=== PATIENT | female | born 1955 | race Caucasian/White ===

== ENCOUNTER 2018-12-31 08:17 | Outpatient (RCR) | payer MEDICARE, MEDICAID, SELFPAY ==
[2018-12-31 08:42] VITALS: BP 147/79; PULSE 65; RESP 18; TEMP 36.2; BMI 25.0
--- NOTE | 2018-12-31 10:44 | PCM.WC.PN ---
(1) Peripheral vascular disease of lower extremity with ulceration Status: Acute Current Visit: Yes Code(s): I73.9 - Peripheral vascular disease, unspecified; L97.909 - Non-pressure chronic ulcer of unspecified part of unspecified lower leg with unspecified severity (2) History of DVT of lower extremity Status: Acute Current Visit: Yes Code(s): Z86.718 - Personal history of other venous thrombosis and embolism (3) Blood clotting factor deficiency disorder Status: Acute Current Visit: Yes Code(s): D68.4 - Acquired coagulation factor deficiency (4) Nonhealing nonsurgical wound with fat layer exposed Status: Acute Current Visit: Yes Code(s): T14.8XXA - Other injury of unspecified body region, initial encounter (5) Non-pressure chronic ulcer of ankle Status: Acute Current Visit: Yes Code(s): L97.309 - Non-pressure chronic ulcer of unspecified ankle with unspecified severity Type of Wound Date of Service: 12/31/18 Chief Complaint: Follow-up on left lateral venous ulcer of inner ankle History of Wound: 63-year-old white female with a clotting disorder on Coumadin. Developed in November and open area and her left inner ankle area while in [place]. Patient was not wearing her compression stockings because of the heat. Patient has been seen by her primary care doctor and started on doxycycline on and has been on a Medrol Dosepak for this problem. Patient was referred to us from her doctor. Progress of Wound: Today the ulcer is irregular in shape one by one and positive depth. Appears clean but very painful. Patient will be started on some Neurontin for her pain. Patient has been wearing her compression stockings since the incident. Some redness around the area of the ulcer - Physical Exam Vital Signs Temp Pulse Resp BP 97.1 F L 65 18 147/79 H 12/31/18 08:42 12/31/18 08:42 12/31/18 08:42 12/31/18 08:42 General: Oriented x3, Cooperative, Well developed HEENT: Atraumatic, PERRLA Oral: Moist Mucosa Neck: Supple, No JVD Lungs: Clear to auscultation, Normal air movement Cardiovascular: Regular rate, Regular Rhythm Abdomen: Bowel Sounds Present, Soft, Non Tender, No Hepato-splenomegaly Extremities: No clubbing, No edema Skin: Ulcer/ Wound - Left inner ankle ulcer peripheral vascular Wound Measurements and Assessment WC - Nurse 1 - General Ulcer Measurement Start: 12/31/18 08:27 Freq: Status: Active Protocol: Activity Type Activity Date Activity User E-Sign Co-Sign Detail Recorded Client Recorded Date Recorded By Document 12/31/18 08:42 DL [id number] 12/31/18 09:08 DL 12/31/18 08:42 Wound Center Nurse 1 [Ulcer Assessment] #1 L Lat Ankle -Current Size (cm) - Length 0.7 -Current Size (cm) - Width 0.7 -Current Size (cm) - Depth 0.2 -Total Square Cm 0.49 -Photo Taken Yes -Exudate Amt Small -Exudate Type Serosanguineous -Wound Margin Distinct, Outline Attached -Granulation Amt Large (67-100%) -Granulation Quality Pale,[place] -Necrosis Amt Small (1-33%) -Necrotic Tissue Type Adherent Slough -Structure Exposed N/A -Texture (Debbi-wound Skin Appearance) Scarring -Moisture (Debbi-wound Skin Appearance No Abnormality ) -Color (Debbi-wound Skin Appearance) Hemosiderin Staining -Temperature (Debbi-wound Skin No Abnormality Appearance) (Pt Warm) -Tenderness on Palpation (Debbi-wound Yes Skin Appearance) -Ulcer Cleansing Rinsed/ Irrigated with Saline -Foul Odor after Cleansing No -Anesthetic Used 4% Lidocaine Solution,5% Lidocaine Gel [Edema Assessment] -Right Calf (cm) 31 -Right Ankle (cm) 18.3 -Left Calf (cm) 31.4 -Left Ankle (cm) 18.3 WC - Nurse 2 - General Ulcer CM Notes Start: 12/31/18 08:27 Freq: Status: Active Protocol: Activity Type Activity Date Activity User E-Sign Co-Sign Detail Recorded Client Recorded Date Recorded By Document 12/31/18 09:37 MW [id number] 12/31/18 09:45 MW 12/31/18 09:37 Wound Center Nurse 2 [Procedure/Treatment] #1 L Lat Ankle -Time 09:37 -Correct Patient Yes -Correct Side, Site, Position Yes -Correct Procedure Yes -Procedure Performed Yes -Type of Procedure Debridement -Clinical Debridement Subcutaneous -Post Debridement Size (cm) - Length 1.0 -Post Debridement Size (cm) - Width 1.0 -Post Debridement Size (cm) - Depth 0.3 -Total Square Cm 1.00 -Wound/Ulcer Outcome Not Healed -Ulcer Cleansing Rinsed/ Irrigated with Saline -Foul Odor after Cleansing No -Bioengineered Tissue No -Bleeding Controlled with Pressure -Offloading No -Treatment Response Procedure Tolerated Well [See Physician Procedure note for Specifics] Pain Scale: 0-10 Numeric [Pain] -Is Patient Pain Free? Yes Musculoskeletal: No Tenderness to Palpation of Joints or Extremities Lymphatic: No Cervical, Supraclavicular, or Inguinal Adenopathy Neurological: Cranial nerves II-XII grossly intact, Neuro grossly intact Psych/Mental Status: Normal Affect, Appropriate Debridement Note Post-Debridement Measurements/Treatment WC - Nurse 2 - General Ulcer CM Notes Start: 12/31/18 08:27 Freq: Status: Active Protocol: Activity Type Activity Date Activity User E-Sign Co-Sign Detail Recorded Client Recorded Date Recorded By Document 12/31/18 09:37 MW [id number] 12/31/18 09:45 MW 12/31/18 09:37 Wound Center Nurse 2 #1 L Lat Ankle -Time 09:37 -Correct Patient Yes -Correct Side, Site, Position Yes -Correct Procedure Yes -Procedure Performed Yes -Type of Procedure Debridement -Clinical Debridement Subcutaneous -Post Debridement Size (cm) - Length 1.0 -Post Debridement Size (cm) - Width 1.0 -Post Debridement Size (cm) - Depth 0.3 -Total Square Cm 1.00 -Wound/Ulcer Outcome Not Healed -Ulcer Cleansing Rinsed/ Irrigated with Saline -Foul Odor after Cleansing No -Bioengineered Tissue No -Bleeding Controlled with Pressure -Offloading No -Treatment Response Procedure Tolerated Well Pain Scale: 0-10 Numeric Is Patient Pain Free? Yes Wound debrided: Peripheral vascular with ulcer left inner ankle Type of Debridement: Excisional debridement Anesthesia Used: 5% Lidocaine Gel Depth: Down to and including healthy tissue, in the subcutaneous layer Percentage of wound debrided: 100 Instrument Used: 3mm curette Tissue Removed: Fibrin Severity: Limited To Skin Breakdown Amount of bleeding with debridement: Mild Bleeding Controlled with: Compression and gauze Patient tolerated procedure well Assessment/Plan Active Problems Peripheral vascular disease of lower extremity with ulceration (Acute) History of DVT of lower extremity (Acute) Blood clotting factor deficiency disorder (Acute) Nonhealing nonsurgical wound with fat layer exposed (Acute) Non-pressure chronic ulcer of ankle (Acute) Assessment: Nonhealing nonpressure nonsurgical ulcer. Peripheral vascular disease. Clotting disorder. Pain left lower leg Plan: Wash leg with antibacterial soap or Hibiclens. Apply Promogran to the wound base cover with Adaptic and dressing double layer Tubigrip. Follow up in 1 week. Will apply for skin substitutes.
== END 2019-01-05 23:59 ==
LOC: WC 08:17
PROVIDERS: Family Provider Physician Assistant Medical; PCP Physician Assistant Medical; Visit Provider Podiatrist
DX: I73.9 Peripheral vascular disease, unspecified (principal); Z86.718 Personal history of other venous thrombosis and embolism; L97.311 Non-pressure chronic ulcer of right ankle limited to breakdown of skin
CPT/HCPCS: 11042; 99203; G0463

== ENCOUNTER 2019-02-04 09:45 | Outpatient (RCR) | payer MEDICARE, MEDICAID, SELFPAY ==
[2019-01-06 01:16] VITALS: BP 147/79; PULSE 65; RESP 18; TEMP 36.2
[2019-01-07 10:01] VITALS: BP 130/66; PULSE 68; RESP 16; TEMP 35.9; BMI 25.0
--- NOTE | 2019-01-07 10:51 | PCM.WC.PN ---
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 Current Visit: Yes Code(s): D68.4 - Acquired coagulation factor deficiency (2) History of DVT of lower extremity Status: Chronic Current Visit: Yes Code(s): Z86.718 - Personal history of other venous thrombosis and embolism (3) Non-pressure chronic ulcer of ankle Status: Acute Current Visit: Yes Qualifiers: Laterality: left Code(s): L97.309 - Non-pressure chronic ulcer of unspecified ankle with unspecified severity (4) Nonhealing nonsurgical wound with fat layer exposed Status: Acute Current Visit: Yes Code(s): T14.8XXA - Other injury of unspecified body region, initial encounter (5) Peripheral vascular disease of lower extremity with ulceration Status: Acute Current Visit: Yes Code(s): I73.9 - Peripheral vascular disease, unspecified; L97.909 - Non-pressure chronic ulcer of unspecified part of unspecified lower leg with unspecified severity Type of Wound Date of Service: 01/07/19 Chief Complaint: Follow-up on left lateral venous ulcer of inner ankle History of Wound: 63-year-old white female with a clotting disorder on Coumadin. Developed in November and open area and her left inner ankle area while in [place]. Patient was not wearing her compression stockings because of the heat. Patient has been seen by her primary care doctor and started on doxycycline on and has been on a Medrol Dosepak for this problem. Patient was referred to us from her doctor. Progress of Wound: Today the ulcer is irregular in shape one by one and positive depth. Appears smaller clean but very painful. Patient will be started on some Neurontin for her pain. Which she says is been helping her she is been averaging 10 pills a day 2 or 3 at a time roughly around 4 times a day. Patient has been wearing her compression stockings since the incident. Patient was approved for epi fix will apply #1 today - Physical Exam Vital Signs Temp Pulse Resp BP 96.6 F L 68 16 130/66 H 01/07/19 10:01 01/07/19 10:01 01/07/19 10:01 01/07/19 10:01 General: Oriented x3, Cooperative, Well developed HEENT: Atraumatic, PERRLA Oral: Moist Mucosa Neck: Supple, No JVD Lungs: Clear to auscultation, Normal air movement Cardiovascular: Regular rate, Regular Rhythm Abdomen: Bowel Sounds Present, Soft, Non Tender, No Hepato-splenomegaly Extremities: No clubbing, No edema, - - Left lateral peripheral vascular disease with ulcer Wound Measurements and Assessment WC - Nurse 1 - General Ulcer Measurement Start: 01/07/19 10:00 Freq: Status: Active Protocol: Activity Type Activity Date Activity User E-Sign Co-Sign Detail Recorded Client Recorded Date Recorded By Document 01/07/19 10:01 BS [id number] 01/07/19 10:10 BS 01/07/19 10:01 Wound Center Nurse 1 [Ulcer Assessment] #1 L Lat Ankle -Combined with other wound No -Current Size (cm) - Length 0.5 -Current Size (cm) - Width 1.3 -Current Size (cm) - Depth 0.3 -Total Square Cm 0.65 -Undermining/Tunneling No -Granulation Amt Small (1-33%) -Granulation Quality [place],Red -Moisture (Debbi-wound Skin Appearance Assessed,Dry/ ) Scaly -Color (Debbi-wound Skin Appearance) Assessed -Temperature (Debbi-wound Skin No Abnormality Appearance) (Pt Warm) -Tenderness on Palpation (Debbi-wound No Skin Appearance) -Ulcer Cleansing Rinsed/ Irrigated with Saline -Foul Odor after Cleansing No -Anesthetic Used 5% Lidocaine Gel [Edema Assessment] -Point of measurement (cm from the 32.0 medial instep) -Point of Measurement (cm from the 20.0 medial instep) ROSARIO - Nurse 2 - General Ulcer CM Notes Start: 01/07/19 10:00 Freq: Status: Active Protocol: Activity Type Activity Date Activity User E-Sign Co-Sign Detail Recorded Client Recorded Date Recorded By Document 01/07/19 10:19 MW [id number] 01/07/19 10:27 MW 01/07/19 10:19 Wound Center Nurse 2 [Procedure/Treatment] #1 L Lat Ankle -Time 10:19 -Correct Patient Yes -Correct Side, Site, Position Yes -Correct Procedure Yes -Procedure Performed Yes -Type of Procedure Debridement -Clinical Debridement Subcutaneous -Post Debridement Size (cm) - Length 0.5 -Post Debridement Size (cm) - Width 0.5 -Post Debridement Size (cm) - Depth 0.3 -Total Square Cm 0.25 -Wound/Ulcer Outcome Not Healed -Ulcer Cleansing Rinsed/ Irrigated with Saline -Foul Odor after Cleansing No -Bioengineered Tissue Yes -Type of bioengineered Tissue EPIFIX -Expiration Date 05/08/23 -Product Lot Number [id number] -Percent Used 100 -Saline Lot Number [id number] -Bleeding Controlled with Pressure -Offloading No -Treatment Response Procedure Tolerated Well [See Physician Procedure note for Specifics] Pain Scale: 0-10 Numeric [Pain] -Is Patient Pain Free? Yes Musculoskeletal: No Tenderness to Palpation of Joints or Extremities Lymphatic: No Cervical, Supraclavicular, or Inguinal Adenopathy Neurological: Cranial nerves II-XII grossly intact, Neuro grossly intact Psych/Mental Status: Normal Affect, Appropriate Debridement Note Post-Debridement Measurements/Treatment WC - Nurse 2 - General Ulcer CM Notes Start: 01/07/19 10:00 Freq: Status: Active Protocol: Activity Type Activity Date Activity User E-Sign Co-Sign Detail Recorded Client Recorded Date Recorded By Document 01/07/19 10:19 MW [id number] 01/07/19 10:27 MW 01/07/19 10:19 Wound Center Nurse 2 #1 L Lat Ankle -Time 10:19 -Correct Patient Yes -Correct Side, Site, Position Yes -Correct Procedure Yes -Procedure Performed Yes -Type of Procedure Debridement -Clinical Debridement Subcutaneous -Post Debridement Size (cm) - Length 0.5 -Post Debridement Size (cm) - Width 0.5 -Post Debridement Size (cm) - Depth 0.3 -Total Square Cm 0.25 -Wound/Ulcer Outcome Not Healed -Ulcer Cleansing Rinsed/ Irrigated with Saline -Foul Odor after Cleansing No -Bioengineered Tissue Yes -Type of bioengineered Tissue EPIFIX -Expiration Date 05/08/23 -Product Lot Number [id number] -Percent Used 100 -Saline Lot Number [id number] -Bleeding Controlled with Pressure -Offloading No -Treatment Response Procedure Tolerated Well Pain Scale: 0-10 Numeric Is Patient Pain Free? Yes Wound debrided: Left lateral lower ankle Laterality: Left Type of Debridement: Excisional debridement Anesthesia Used: 5% Lidocaine Gel Depth: Down to and including healthy tissue, in the subcutaneous layer Percentage of wound debrided: 100 Instrument Used: - - 1 curette Tissue Removed: Fibrin and slough Severity: Limited To Skin Breakdown Amount of bleeding with debridement: Mild Bleeding Controlled with: Compression and gauze Patient tolerated procedure well Assessment/Plan Active Problems Peripheral vascular disease of lower extremity with ulceration (Acute) History of DVT of lower extremity (Chronic) Blood clotting factor deficiency disorder (Chronic) Nonhealing nonsurgical wound with fat layer exposed (Acute) Non-pressure chronic ulcer of ankle (Acute) Assessment: Nonhealing nonpressure nonsurgical ulcer. Peripheral vascular disease. Clotting disorder. Pain left lower leg Plan: 1. Epi fix applied Adaptic and Steri-Strips dry dressing. Patient instructed to leave alone for 1 week. Follow up in 1 week
[2019-01-14 09:26] VITALS: BP 135/78; PULSE 75; RESP 18; TEMP 36.6; BMI 25.0
--- NOTE | 2019-01-14 11:35 | PN.PCM_ITS ---
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 Current Visit: Yes Code(s): D68.4 - Acquired coagulation factor deficiency (2) History of DVT of lower extremity Status: Chronic Current Visit: Yes Code(s): Z86.718 - Personal history of other venous thrombosis and embolism (3) Non-pressure chronic ulcer of ankle Status: Acute Current Visit: Yes Qualifiers: Laterality: left Code(s): L97.309 - Non-pressure chronic ulcer of unspecified ankle with unspecified severity (4) Peripheral vascular disease of lower extremity with ulceration Status: Acute Current Visit: Yes Code(s): I73.9 - Peripheral vascular disease, unspecified; L97.909 - Non-pressure chronic ulcer of unspecified part of unspecified lower leg with unspecified severity Type of Wound Date of Service: 01/14/19 Chief Complaint: Follow-up on left lateral venous ulcer of inner ankle History of Wound: 63-year-old white female with a clotting disorder on Coumadin. Developed in November and open area and her left inner ankle area while in [place]. Patient was not wearing her compression stockings because of the heat. Patient has been seen by her primary care doctor and started on doxycycline on and has been on a Medrol Dosepak for this problem. Patient was referred to us from her doctor. Progress of Wound: Today the ulcer is irregular in shape one by one and positive depth. Appears bigger after 1 epi fix clean but very painful. Patient will be started on some Neurontin for her pain. The Neurontin helps the pain but it throws off her INR so she has to decrease it to use for the pain. Which she says is been helping her she is been averaging 10 pills a day 2 or 3 at a time roughly around 4 times a day. Patient has been wearing her compression stockings since the incident. It is very hard to debride the wound because of her pain level we might have to number and actually debride more aggressively next week we will see. - Physical Exam Vital Signs Temp Pulse Resp BP 97.8 F 75 18 135/78 H 01/14/19 09:26 01/14/19 09:26 01/14/19 09:26 01/14/19 09:26 General: Oriented x3, Cooperative, Well developed HEENT: Atraumatic, PERRLA Oral: Moist Mucosa Neck: Supple, No JVD Lungs: Clear to auscultation, Normal air movement Cardiovascular: Regular rate, Regular Rhythm Abdomen: Bowel Sounds Present, Soft, Non Tender, No Hepato-splenomegaly Extremities: No clubbing, No edema, - - Left medial ankle ulcer Wound Measurements and Assessment WC - Nurse 1 - General Ulcer Measurement Start: 01/07/19 10:00 Freq: Status: Active Protocol: Activity Type Activity Date Activity User E-Sign Co-Sign Detail Recorded Client Recorded Date Recorded By Document 01/14/19 09:26 DL [id number] 01/14/19 09:34 DL 01/14/19 09:26 Wound Center Nurse 1 [Ulcer Assessment] #1 L Lat Ankle -Current Size (cm) - Length 0.6 -Current Size (cm) - Width 0.8 -Current Size (cm) - Depth 0.2 -Total Square Cm 0.48 -Photo Taken No -Exudate Amt Small -Exudate Type Serosanguineous -Wound Margin Thickened -Granulation Amt None Present (0 %) -Necrosis Amt Large (67-100%) -Necrotic Tissue Type Adherent Slough -Structure Exposed N/A -Texture (Debbi-wound Skin Appearance) Scarring -Moisture (Debbi-wound Skin Appearance No Abnormality ) -Color (Debbi-wound Skin Appearance) Hemosiderin Staining,[place] -Temperature (Debbi-wound Skin No Abnormality Appearance) (Pt Warm) -Tenderness on Palpation (Debbi-wound No Skin Appearance) -Ulcer Cleansing Wound Cleanser -Foul Odor after Cleansing No -Anesthetic Used 4% Lidocaine Solution,5% Lidocaine Gel [Edema Assessment] -Left Calf (cm) 31 -Left Ankle (cm) 18.5 WC - Nurse 2 - General Ulcer CM Notes Start: 01/07/19 10:00 Freq: Status: Active Protocol: Activity Type Activity Date Activity User E-Sign Co-Sign Detail Recorded Client Recorded Date Recorded By Document 01/14/19 09:44 MW [id number] 01/14/19 09:51 MW 01/14/19 09:44 Wound Center Nurse 2 [Procedure/Treatment] #1 L Lat Ankle -Time 09:44 -Correct Patient Yes -Correct Side, Site, Position Yes -Correct Procedure Yes -Procedure Performed Yes -Type of Procedure Debridement -Clinical Debridement Subcutaneous -Post Debridement Size (cm) - Length 0.7 -Post Debridement Size (cm) - Width 1.0 -Post Debridement Size (cm) - Depth 0.3 -Total Square Cm 0.70 -Wound/Ulcer Outcome Not Healed -Ulcer Cleansing Rinsed/ Irrigated with Saline -Foul Odor after Cleansing No -Bioengineered Tissue Yes -Type of bioengineered Tissue EPIFIX -Expiration Date 05/08/23 -Product Lot Number [id number] -Percent Used 100 -Saline Lot Number [id number] -Bleeding Controlled with Pressure -Offloading No -Treatment Response Procedure Tolerated Well [See Physician Procedure note for Specifics] Pain Scale: 0-10 Numeric [Pain] -Is Patient Pain Free? Yes Musculoskeletal: No Tenderness to Palpation of Joints or Extremities Lymphatic: No Cervical, Supraclavicular, or Inguinal Adenopathy Neurological: Cranial nerves II-XII grossly intact, Neuro grossly intact Psych/Mental Status: Normal Affect, Appropriate Debridement Note Post-Debridement Measurements/Treatment WC - Nurse 2 - General Ulcer CM Notes Start: 01/07/19 10:00 Freq: Status: Active Protocol: Activity Type Activity Date Activity User E-Sign Co-Sign Detail Recorded Client Recorded Date Recorded By Document 01/07/19 10:19 MW [id number] 01/07/19 10:27 MW Document 01/14/19 09:44 MW [id number] 01/14/19 09:51 MW 01/07/19 01/14/19 10:19 09:44 Wound Center Nurse 2 #1 L Lat Ankle -Time 10:19 09:44 -Correct Patient Yes Yes -Correct Side, Site, Position Yes Yes -Correct Procedure Yes Yes -Procedure Performed Yes Yes -Type of Procedure Debridement Debridement -Clinical Debridement Subcutaneous Subcutaneous -Post Debridement Size (cm) - Length 0.5 0.7 -Post Debridement Size (cm) - Width 0.5 1.0 -Post Debridement Size (cm) - Depth 0.3 0.3 -Total Square Cm 0.25 0.70 -Wound/Ulcer Outcome Not Healed Not Healed -Ulcer Cleansing Rinsed/ Rinsed/ Irrigated with Irrigated with Saline Saline -Foul Odor after Cleansing No No -Bioengineered Tissue Yes Yes -Type of bioengineered Tissue EPIFIX EPIFIX -Expiration Date 05/08/23 05/08/23 -Product Lot Number [id number] -Percent Used 100 100 -Saline Lot Number [id number] -Bleeding Controlled with Pressure Pressure -Offloading No No -Treatment Response Procedure Procedure Tolerated Well Tolerated Well Pain Scale: 0-10 Numeric Is Patient Pain Free? Yes Yes Wound debrided: Left medial ankle ulcer Type of Debridement: Excisional debridement Anesthesia Used: 5% Lidocaine Gel Depth: Down to and including healthy tissue, in the subcutaneous layer Percentage of wound debrided: 100 Instrument Used: 3mm curette Tissue Removed: Slough Severity: Fat Layer Exposed Assessment/Plan Active Problems Peripheral vascular disease of lower extremity with ulceration (Acute) History of DVT of lower extremity (Chronic) Blood clotting factor deficiency disorder (Chronic) Nonhealing nonsurgical wound with fat layer exposed (Acute) Non-pressure chronic ulcer of ankle (Acute) Assessment: Nonhealing nonpressure nonsurgical ulcer. Peripheral vascular disease. Clotting disorder. Pain left lower leg Plan: Epi fix to applied Adaptic and Steri-Strips dry dressing. Patient instructed to leave alone for 1 week. Follow up in 1 week
[2019-01-21 09:37] VITALS: BP 126/77; PULSE 68; RESP 16; TEMP 36.3; BMI 25.0
--- NOTE | 2019-01-21 10:35 | PCM.WC.PN ---
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 Current Visit: Yes Code(s): D68.4 - Acquired coagulation factor deficiency (2) History of DVT of lower extremity Status: Chronic Current Visit: Yes Code(s): Z86.718 - Personal history of other venous thrombosis and embolism (3) Non-pressure chronic ulcer of ankle Status: Acute Current Visit: Yes Qualifiers: Laterality: left Code(s): L97.309 - Non-pressure chronic ulcer of unspecified ankle with unspecified severity (4) Peripheral vascular disease of lower extremity with ulceration Status: Acute Current Visit: Yes Code(s): I73.9 - Peripheral vascular disease, unspecified; L97.909 - Non-pressure chronic ulcer of unspecified part of unspecified lower leg with unspecified severity Type of Wound Date of Service: 01/21/19 Chief Complaint: Follow-up on left lateral venous ulcer of inner ankle History of Wound: 63-year-old white female with a clotting disorder on Coumadin. Developed in November and open area and her left inner ankle area while in [place]. Patient was not wearing her compression stockings because of the heat. Patient has been seen by her primary care doctor and started on doxycycline on and has been on a Medrol Dosepak for this problem. Patient was referred to us from her doctor. Progress of Wound: Today the ulcer is irregular in shape and still the same after 2 epi fix I am going to numb with 1% lidocaine and actually do some heavy duty debriding and get through to the base and then reapply an epi fix on top. Patient is not tolerant to any kind of debridement she has severe pain in that area. Lidocaine helped. Patient will be started on some Neurontin for her pain. The Neurontin helps the pain but it throws off her INR so she has to decrease it to use for the pain. We will culture her today. - Physical Exam Vital Signs Temp Pulse Resp BP 97.3 F L 68 16 126/77 H 01/21/19 09:37 01/21/19 09:37 01/21/19 09:37 01/21/19 09:37 General: Oriented x3, Cooperative, Well developed HEENT: Atraumatic, PERRLA Oral: Moist Mucosa Neck: Supple, No JVD Lungs: Clear to auscultation, Normal air movement Cardiovascular: Regular rate, Regular Rhythm Abdomen: Bowel Sounds Present, Soft, Non Tender, No Hepato-splenomegaly Extremities: No clubbing, No edema Skin: Ulcer/ Wound - Left medial ankle peripheral ulcer Wound Measurements and Assessment - Nurse 1 - General Ulcer Measurement Start: 01/07/19 10:00 Freq: Status: Active Protocol: Activity Type Activity Date Activity User E-Sign Co-Sign Detail Recorded Client Recorded Date Recorded By Document 01/21/19 09:37 TOBIAS [id number] 01/21/19 09:39 BS 01/21/19 09:37 Wound Center Nurse 1 [Ulcer Assessment] #1 L Lat Ankle -Combined with other wound No -Current Size (cm) - Length 0.7 -Current Size (cm) - Width 1.3 -Current Size (cm) - Depth 0.3 -Total Square Cm 0.91 -Photo Taken No -Tunneling No -Granulation Quality [place] -Necrosis Amt Small (1-33%) -Necrotic Tissue Type Adherent Slough -Texture (Debbi-wound Skin Appearance) Assessed, Scarring -Moisture (Debbi-wound Skin Appearance Assessed,Dry/ ) Scaly -Color (Debbi-wound Skin Appearance) Assessed, Hemosiderin Staining -Temperature (Debbi-wound Skin No Abnormality Appearance) (Pt Warm) -Tenderness on Palpation (Debbi-wound Yes Skin Appearance) -Ulcer Cleansing Rinsed/ Irrigated with Saline -Foul Odor after Cleansing No -Anesthetic Used 5% Lidocaine Gel - Nurse 2 - General Ulcer CM Notes Start: 01/07/19 10:00 Freq: Status: Active Protocol: Activity Type Activity Date Activity User E-Sign Co-Sign Detail Recorded Client Recorded Date Recorded By Document 01/21/19 09:58 ERAN [id number] 01/21/19 10:00 ERAN 01/21/19 09:58 Wound Center Nurse 2 [Procedure/Treatment] -Time 09:58 -Correct Patient Yes -Correct Side, Site, Position Yes -Correct Procedure Yes -Procedure Performed Yes -Type of Procedure Debridement -Clinical Debridement Subcutaneous -Post Debridement Size (cm) - Length 0.6 -Post Debridement Size (cm) - Width 1.1 -Post Debridement Size (cm) - Depth 0.3 -Total Square Cm 0.66 -Wound/Ulcer Outcome Not Healed -Ulcer Cleansing Rinsed/ Irrigated with Saline -Foul Odor after Cleansing No -Bioengineered Tissue Yes -Type of bioengineered Tissue EPIFIX -Expiration Date 06/08/23 -Product Lot Number [id number] -Percent Used 100 -Saline Lot Number [id number] -Bleeding Controlled with Pressure -Offloading No -Treatment Response Procedure Tolerated Well [See Physician Procedure note for Specifics] Pain Scale: 0-10 Numeric [Pain] -Is Patient Pain Free? Yes Musculoskeletal: No Tenderness to Palpation of Joints or Extremities Lymphatic: No Cervical, Supraclavicular, or Inguinal Adenopathy Neurological: Cranial nerves II-XII grossly intact, Neuro grossly intact Psych/Mental Status: Normal Affect, Appropriate, Alert and oriented to time, place, person, mood and affect Debridement Note Post-Debridement Measurements/Treatment WC - Nurse 2 - General Ulcer CM Notes Start: 01/07/19 10:00 Freq: Status: Active Protocol: Activity Type Activity Date Activity User E-Sign Co-Sign Detail Recorded Client Recorded Date Recorded By Document 01/07/19 10:19 MW [id number] 01/07/19 10:27 MW Document 01/14/19 09:44 MW [id number] 01/14/19 09:51 MW Document 01/21/19 09:58 JF [id number] 01/21/19 10:00 JF 01/07/19 01/14/19 01/21/19 10:19 09:44 09:58 Wound Center Nurse 2 #1 L Lat Ankle -Time 10:19 09:44 09:58 -Correct Patient Yes Yes Yes -Correct Side, Site, Position Yes Yes Yes -Correct Procedure Yes Yes Yes -Procedure Performed Yes Yes Yes -Type of Procedure Debridement Debridement Debridement -Clinical Debridement Subcutaneous Subcutaneous Subcutaneous -Post Debridement Size (cm) - Length 0.5 0.7 0.6 -Post Debridement Size (cm) - Width 0.5 1.0 1.1 -Post Debridement Size (cm) - Depth 0.3 0.3 0.3 -Total Square Cm 0.25 0.70 0.66 -Wound/Ulcer Outcome Not Healed Not Healed Not Healed -Ulcer Cleansing Rinsed/ Rinsed/ Rinsed/ Irrigated with Irrigated with Irrigated with Saline Saline Saline -Foul Odor after Cleansing No No No -Bioengineered Tissue Yes Yes Yes -Type of bioengineered Tissue EPIFIX EPIFIX EPIFIX -Expiration Date 05/08/23 05/08/23 06/08/23 -Product Lot Number [id number] -Percent Used 100 100 100 -Saline Lot Number [id number] -Bleeding Controlled with Pressure Pressure Pressure -Offloading No No No -Treatment Response Procedure Procedure Procedure Tolerated Well Tolerated Well Tolerated Well Pain Scale: 0-10 Numeric Is Patient Pain Free? Yes Yes Yes Wound debrided: Left medial ankle ulcer Type of Debridement: Excisional debridement Anesthesia Used: - - Lidocaine 1% Depth: Down to and including healthy tissue, in the subcutaneous layer Percentage of wound debrided: 100 Instrument Used: 7mm curette, #15 blade Tissue Removed: Slough and fibrin Severity: Fat Layer Exposed Amount of bleeding with debridement: Mild Bleeding Controlled with: Compression and gauze Patient tolerated procedure well Assessment/Plan Active Problems Peripheral vascular disease of lower extremity with ulceration (Acute) History of DVT of lower extremity (Chronic) Blood clotting factor deficiency disorder (Chronic) Nonhealing nonsurgical wound with fat layer exposed (Acute) Non-pressure chronic ulcer of ankle (Acute) Assessment: Nonhealing nonpressure nonsurgical ulcer. Peripheral vascular disease. Clotting disorder. Pain left lower leg Plan: 3. Epi fix to applied Adaptic and Steri-Strips dry dressing. Hydrofera Blue and stasis pads around wound. Patient instructed to leave alone for 1 week. Follow up in 1 week
[2019-01-28 09:46] VITALS: BP 135/76; PULSE 67; RESP 18; TEMP 36.4; BMI 25.0
--- NOTE | 2019-01-28 10:43 | PN.PCM_ITS ---
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 Current Visit: Yes Code(s): D68.4 - Acquired coagulation factor deficiency (2) History of DVT of lower extremity Status: Chronic Current Visit: Yes Code(s): Z86.718 - Personal history of other venous thrombosis and embolism (3) Non-pressure chronic ulcer of ankle Status: Acute Current Visit: Yes Qualifiers: Laterality: left Code(s): L97.309 - Non-pressure chronic ulcer of unspecified ankle with unspecified severity (4) Peripheral vascular disease of lower extremity with ulceration Status: Acute Current Visit: Yes Code(s): I73.9 - Peripheral vascular disease, unspecified; L97.909 - Non-pressure chronic ulcer of unspecified part of unspecified lower leg with unspecified severity Type of Wound Date of Service: 01/28/19 Chief Complaint: Follow-up on left lateral venous ulcer of inner ankle History of Wound: 63-year-old white female with a clotting disorder on Coumadin. Developed in November and open area and her left inner ankle area while in [place]. Patient was not wearing her compression stockings because of the heat. Patient has been seen by her primary care doctor and started on doxycycline on and has been on a Medrol Dosepak for this problem. Patient was referred to us from her doctor. Progress of Wound: Today the ulcer is well demarcated and starting to show some skin in the base but still has slough growing around the perimeter and the base of the wound. Again we numbed with 1% lidocaine and actually do some heavy duty debriding and get through to the base and then reapply an epi fix on top #3. Patient is not tolerant to any kind of debridement she has severe pain in that area. Lidocaine helped. Patient will be started on some Neurontin for her pain. The Neurontin helps the pain but it throws off her INR so she has to decrease it to use for the pain. Patient states that last week after debridement she had a lot of pain later after the numbness wore off so we will start her on some tramadol as needed it. Her cultures were rare and no growth but she has anaerobes and will be started on metronidazole 250 3 times daily for 10 days - Physical Exam Vital Signs Temp Pulse Resp BP 97.6 F L 67 18 135/76 H 01/28/19 09:46 01/28/19 09:46 01/28/19 09:46 01/28/19 09:46 General: Oriented x3, Cooperative, Well developed HEENT: Atraumatic, PERRLA Oral: Moist Mucosa Neck: Supple, No JVD Lungs: Clear to auscultation, Normal air movement Cardiovascular: Regular rate, Regular Rhythm Abdomen: Bowel Sounds Present, Soft, Non Tender, No Hepato-splenomegaly Extremities: No clubbing, No edema, - - Left lateral ankle ulcer Wound Measurements and Assessment WC - Nurse 1 - General Ulcer Measurement Start: 01/07/19 10:00 Freq: Status: Active Protocol: Activity Type Activity Date Activity User E-Sign Co-Sign Detail Recorded Client Recorded Date Recorded By Document 01/28/19 09:46 DL [id number] 01/28/19 09:55 DL 01/28/19 09:46 Wound Center Nurse 1 [Ulcer Assessment] #1 L Lat Ankle -Current Size (cm) - Length 0.7 -Current Size (cm) - Width 1.2 -Current Size (cm) - Depth 0.3 -Total Square Cm 0.84 -Photo Taken No -Exudate Amt Small -Exudate Type Serosanguineous -Wound Margin Distinct, Outline Attached -Granulation Amt Small (1-33%) -Granulation Quality [place],Red -Necrosis Amt Small (1-33%) -Necrotic Tissue Type Adherent Slough -Structure Exposed N/A -Texture (Debbi-wound Skin Appearance) Scarring -Moisture (Debbi-wound Skin Appearance No Abnormality ) -Color (Debbi-wound Skin Appearance) Hemosiderin Staining -Temperature (Debbi-wound Skin No Abnormality Appearance) (Pt Warm) -Tenderness on Palpation (Debbi-wound No Skin Appearance) -Ulcer Cleansing Wound Cleanser -Foul Odor after Cleansing No -Anesthetic Used 4% Lidocaine Solution,5% Lidocaine Gel [Edema Assessment] -Left Calf (cm) 31.5 -Left Ankle (cm) 18.5 WC - Nurse 2 - General Ulcer CM Notes Start: 01/07/19 10:00 Freq: Status: Active Protocol: Activity Type Activity Date Activity User E-Sign Co-Sign Detail Recorded Client Recorded Date Recorded By Document 01/28/19 10:00 DL [id number] 01/28/19 10:17 DL 01/28/19 10:00 Wound Center Nurse 2 [Procedure/Treatment] #1 L Lat Ankle -Time 10:05 -Correct Patient Yes -Correct Side, Site, Position Yes -Correct Procedure Yes -Procedure Performed Yes -Type of Procedure Debridement -Clinical Debridement Subcutaneous -Post Debridement Size (cm) - Length 0.7 -Post Debridement Size (cm) - Width 1.5 -Post Debridement Size (cm) - Depth 0.3 -Total Square Cm 1.05 -Wound/Ulcer Outcome Not Healed -Ulcer Cleansing Rinsed/ Irrigated with Saline -Foul Odor after Cleansing No -Bioengineered Tissue Yes -Type of bioengineered Tissue EPIFIX -Expiration Date 06/08/23 -Product Lot Number [id number] -Percent Used 100 -Saline Lot Number [id number] -Topical Lidocaine (%) 2 -Injectable Lidocaine (%) 8 -Bleeding Controlled with Pressure -Offloading No -Treatment Response Procedure Tolerated Well [See Physician Procedure note for Specifics] Pain Scale: 0-10 Numeric [Pain] -Is Patient Pain Free? Yes Musculoskeletal: No Tenderness to Palpation of Joints or Extremities Lymphatic: No Cervical, Supraclavicular, or Inguinal Adenopathy Neurological: Cranial nerves II-XII grossly intact, Neuro grossly intact Psych/Mental Status: Normal Affect, Appropriate Debridement Note Post-Debridement Measurements/Treatment WC - Nurse 2 - General Ulcer CM Notes Start: 01/07/19 10:00 Freq: Status: Active Protocol: Activity Type Activity Date Activity User E-Sign Co-Sign Detail Recorded Client Recorded Date Recorded By Document 01/07/19 10:19 MW [id number] 01/07/19 10:27 MW Document 01/14/19 09:44 MW [id number] 01/14/19 09:51 MW Document 01/21/19 09:58 JF [id number] 01/21/19 10:00 JF Document 01/28/19 10:00 DL [email or web address] 01/28/19 10:17 DL 01/07/19 01/14/19 01/21/19 10:19 09:44 09:58 Wound Center Nurse 2 #1 L Lat Ankle -Time 10:19 09:44 09:58 -Correct Patient Yes Yes Yes -Correct Side, Site, Position Yes Yes Yes -Correct Procedure Yes Yes Yes -Procedure Performed Yes Yes Yes -Type of Procedure Debridement Debridement Debridement -Clinical Debridement Subcutaneous Subcutaneous Subcutaneous -Post Debridement Size (cm) - Length 0.5 0.7 0.6 -Post Debridement Size (cm) - Width 0.5 1.0 1.1 -Post Debridement Size (cm) - Depth 0.3 0.3 0.3 -Total Square Cm 0.25 0.70 0.66 -Wound/Ulcer Outcome Not Healed Not Healed Not Healed -Ulcer Cleansing Rinsed/ Rinsed/ Rinsed/ Irrigated with Irrigated with Irrigated with Saline Saline Saline -Foul Odor after Cleansing No No No -Bioengineered Tissue Yes Yes Yes -Type of bioengineered Tissue EPIFIX EPIFIX EPIFIX -Expiration Date 05/08/23 05/08/23 06/08/23 -Product Lot Number [id number] -Percent Used 100 100 100 -Saline Lot Number [id number] -Topical Lidocaine (%) -Injectable Lidocaine (%) -Bleeding Controlled with Pressure Pressure Pressure -Offloading No No No -Treatment Response Procedure Procedure Procedure Tolerated Well Tolerated Well Tolerated Well Pain Scale: 0-10 Numeric Is Patient Pain Free? Yes Yes Yes 01/28/19 10:00 Wound Center Nurse 2 #1 L Lat Ankle -Time 10:05 -Correct Patient Yes -Correct Side, Site, Position Yes -Correct Procedure Yes -Procedure Performed Yes -Type of Procedure Debridement -Clinical Debridement Subcutaneous -Post Debridement Size (cm) - Length 0.7 -Post Debridement Size (cm) - Width 1.5 -Post Debridement Size (cm) - Depth 0.3 -Total Square Cm 1.05 -Wound/Ulcer Outcome Not Healed -Ulcer Cleansing Rinsed/ Irrigated with Saline -Foul Odor after Cleansing No -Bioengineered Tissue Yes -Type of bioengineered Tissue EPIFIX -Expiration Date 06/08/23 -Product Lot Number [id number] -Percent Used 100 -Saline Lot Number [id number] -Topical Lidocaine (%) 2 -Injectable Lidocaine (%) 8 -Bleeding Controlled with Pressure -Offloading No -Treatment Response Procedure Tolerated Well Pain Scale: 0-10 Numeric Is Patient Pain Free? Yes Type of Debridement: Excisional debridement Anesthesia Used: 5% Lidocaine Gel, - - 2% lidocaine Depth: Down to and including healthy tissue, in the subcutaneous layer Percentage of wound debrided: 100 Instrument Used: 3mm curette, #15 blade, Forceps Tissue Removed: Slough and some fibrin Severity: Limited To Skin Breakdown Amount of bleeding with debridement: Mild Bleeding Controlled with: Compression and gauze Patient tolerated procedure well Assessment/Plan Active Problems Peripheral vascular disease of lower extremity with ulceration (Acute) History of DVT of lower extremity (Chronic) Blood clotting factor deficiency disorder (Chronic) Nonhealing nonsurgical wound with fat layer exposed (Acute) Non-pressure chronic ulcer of ankle (Acute) Assessment: Nonhealing nonpressure nonsurgical ulcer. Peripheral vascular disease. Clotting disorder. Pain left lower leg Plan: 4# Epi fix to applied Adaptic and Steri-Strips dry dressing. Hydrofera Blue and stasis pads around wound. Patient instructed to leave alone for 1 week. Follow up in 1 week. Start metronidazole 250 mg 1 p.o. 3 times daily for 10 days #30. Also called in tramadol 50 mg 1 p.o. every 4 hours as needed #42 with 5 refills
[2019-02-04 09:56] VITALS: BP 135/76; PULSE 82; RESP 16; TEMP 36.9; BMI 25.0
--- NOTE | 2019-02-04 11:10 | PN.PCM_ITS ---
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 Current Visit: Yes Code(s): D68.4 - Acquired coagulation factor deficiency (2) History of DVT of lower extremity Status: Chronic Current Visit: Yes Code(s): Z86.718 - Personal history of other venous thrombosis and embolism (3) Non-pressure chronic ulcer of ankle Status: Acute Current Visit: Yes Qualifiers: Laterality: left Code(s): L97.309 - Non-pressure chronic ulcer of unspecified ankle with unspecified severity (4) Peripheral vascular disease of lower extremity with ulceration Status: Acute Current Visit: Yes Code(s): I73.9 - Peripheral vascular disease, unspecified; L97.909 - Non-pressure chronic ulcer of unspecified part of unspecified lower leg with unspecified severity (5) Infected wound Status: Acute Current Visit: Yes Code(s): T14.8XXA - Other injury of unspecified body region, initial encounter; L08.9 - Local infection of the skin and subcutaneous tissue, unspecified Type of Wound Date of Service: 02/04/19 Chief Complaint: Follow-up on left lateral venous ulcer of inner ankle History of Wound: 63-year-old white female with a clotting disorder on Coumadin. Developed in November and open area and her left inner ankle area while in [place]. Patient was not wearing her compression stockings because of the heat. Patient has been seen by her primary care doctor and started on doxycycline on and has b een on a Medrol Dosepak for this problem. Patient was referred to us from her doctor. Progress of Wound: Today the ulcer is well demarcated and starting to show some skin in the base. Patient had anaerobes and was started on metronidazole last week the pain that she has been complaining about is improving the depth is better and still making new cells in the base of the wounds. She was intolerant to debridement and no esthesia was needed we will continue with the epi fix - Physical Exam Vital Signs Temp Pulse Resp BP 98.4 F 82 16 135/76 H 02/04/19 09:56 02/04/19 09:56 02/04/19 09:56 02/04/19 09:56 General: Oriented x3, Cooperative, Well developed HEENT: Atraumatic, PERRLA Oral: Moist Mucosa Neck: Supple, No JVD Lungs: Clear to auscultation, Normal air movement Cardiovascular: Regular rate, Regular Rhythm Abdomen: Bowel Sounds Present, Soft, Non Tender, No Hepato-splenomegaly Extremities: No clubbing, No edema Skin: Ulcer/ Wound - Left lateral ankle Wound Measurements and Assessment WC - Nurse 1 - General Ulcer Measurement Start: 01/07/19 10:00 Freq: Status: Active Protocol: Activity Type Activity Date Activity User E-Sign Co-Sign Detail Recorded Client Recorded Date Recorded By Document 02/04/19 09:56 BM [id number] 02/04/19 09:58 BMF 02/04/19 09:56 Wound Center Nurse 1 [Ulcer Assessment] #1 L Lat Ankle -Combined with other wound No -Current Size (cm) - Length 1 -Current Size (cm) - Width 1.6 -Current Size (cm) - Depth 0.2 -Total Square Cm 1.6 -Photo Taken No -Epithelialization None Present -Tunneling No -Undermining/Tunneling No -Circular Undermining No -Exudate Amt Small -Exudate Type Serosanguineous -Wound Margin Distinct, Outline Attached -Granulation Amt Small (1-33%) -Granulation Quality Red -Slough/Fibrin Yes -Necrosis Amt Large (67-100%) -Necrotic Tissue Type Adherent Slough -Texture (Debbi-wound Skin Appearance) Assessed, Scarring -Moisture (Debbi-wound Skin Appearance Assessed,Dry/ ) Scaly -Color (Debbi-wound Skin Appearance) Assessed, Erythema -Temperature (Debbi-wound Skin No Abnormality Appearance) (Pt Warm) -Tenderness on Palpation (Debbi-wound No Skin Appearance) -Ulcer Cleansing soap and water -Foul Odor after Cleansing No -Anesthetic Used 5% Lidocaine Gel [Edema Assessment] -Lower Limb Edema Present Yes -Left Calf (cm) 32.6 -Left Ankle (cm) 19 WC - Nurse 2 - General Ulcer CM Notes Start: 01/07/19 10:00 Freq: Status: Active Protocol: Activity Type Activity Date Activity User E-Sign Co-Sign Detail Recorded Client Recorded Date Recorded By Document 02/04/19 10:06 MW [id number] 02/04/19 10:13 MW 02/04/19 10:06 Wound Center Nurse 2 [Procedure/Treatment] #1 L Lat Ankle -Time 10:07 -Correct Patient Yes -Correct Side, Site, Position Yes -Correct Procedure Yes -Procedure Performed Yes -Type of Procedure Debridement -Clinical Debridement Subcutaneous -Post Debridement Size (cm) - Length 1.1 -Post Debridement Size (cm) - Width 1.4 -Post Debridement Size (cm) - Depth 0.3 -Total Square Cm 1.54 -Wound/Ulcer Outcome Not Healed -Ulcer Cleansing Rinsed/ Irrigated with Saline -Foul Odor after Cleansing No -Bioengineered Tissue Yes -Type of bioengineered Tissue EPIFIX -Expiration Date 06/08/23 -Product Lot Number [id number] -Percent Used 100 -Saline Lot Number [id number] -Bleeding Controlled with Pressure -Offloading No -Treatment Response Procedure Tolerated Well [See Physician Procedure note for Specifics] Pain Scale: 0-10 Numeric [Pain] -Is Patient Pain Free? Yes Musculoskeletal: No Tenderness to Palpation of Joints or Extremities Lymphatic: No Cervical, Supraclavicular, or Inguinal Adenopathy Neurological: Cranial nerves II-XII grossly intact, Neuro grossly intact Psych/Mental Status: Normal Affect, Appropriate Debridement Note Post-Debridement Measurements/Treatment WC - Nurse 2 - General Ulcer CM Notes Start: 01/07/19 10:00 Freq: Status: Active Protocol: Activity Type Activity Date Activity User E-Sign Co-Sign Detail Recorded Client Recorded Date Recorded By Document 01/07/19 10:19 MW [id number] 01/07/19 10:27 MW Document 01/14/19 09:44 MW [id number] 01/14/19 09:51 MW Document 01/21/19 09:58 JF [id number] 01/21/19 10:00 JF Document 01/28/19 10:00 DL [id number] 01/28/19 10:17 DL Document 02/04/19 10:06 MW [id number] 02/04/19 10:13 MW 01/07/19 01/14/19 01/21/19 10:19 09:44 09:58 Wound Center Nurse 2 #1 L Lat Ankle -Time 10:19 09:44 09:58 -Correct Patient Yes Yes Yes -Correct Side, Site, Position Yes Yes Yes -Correct Procedure Yes Yes Yes -Procedure Performed Yes Yes Yes -Type of Procedure Debridement Debridement Debridement -Clinical Debridement Subcutaneous Subcutaneous Subcutaneous -Post Debridement Size (cm) - Length 0.5 0.7 0.6 -Post Debridement Size (cm) - Width 0.5 1.0 1.1 -Post Debridement Size (cm) - Depth 0.3 0.3 0.3 -Total Square Cm 0.25 0.70 0.66 -Wound/Ulcer Outcome Not Healed Not Healed Not Healed -Ulcer Cleansing Rinsed/ Rinsed/ Rinsed/ Irrigated with Irrigated with Irrigated with Saline Saline Saline -Foul Odor after Cleansing No No No -Bioengineered Tissue Yes Yes Yes -Type of bioengineered Tissue EPIFIX EPIFIX EPIFIX -Expiration Date 05/08/23 05/08/23 06/08/23 -Product Lot Number [id number] -Percent Used 100 100 100 -Saline Lot Number [id number] -Topical Lidocaine (%) -Injectable Lidocaine (%) -Bleeding Controlled with Pressure Pressure Pressure -Offloading No No No -Treatment Response Procedure Procedure Procedure Tolerated Well Tolerated Well Tolerated Well Pain Scale: 0-10 Numeric Is Patient Pain Free? Yes Yes Yes 01/28/19 02/04/19 10:00 10:06 Wound Center Nurse 2 #1 L Lat Ankle -Time 10:05 10:07 -Correct Patient Yes Yes -Correct Side, Site, Position Yes Yes -Correct Procedure Yes Yes -Procedure Performed Yes Yes -Type of Procedure Debridement Debridement -Clinical Debridement Subcutaneous Subcutaneous -Post Debridement Size (cm) - Length 0.7 1.1 -Post Debridement Size (cm) - Width 1.5 1.4 -Post Debridement Size (cm) - Depth 0.3 0.3 -Total Square Cm 1.05 1.54 -Wound/Ulcer Outcome Not Healed Not Healed -Ulcer Cleansing Rinsed/ Rinsed/ Irrigated with Irrigated with Saline Saline -Foul Odor after Cleansing No No -Bioengineered Tissue Yes Yes -Type of bioengineered Tissue EPIFIX EPIFIX -Expiration Date 06/08/23 06/08/23 -Product Lot Number [id number] -Percent Used 100 100 -Saline Lot Number [id number] -Topical Lidocaine (%) 2 -Injectable Lidocaine (%) 8 -Bleeding Controlled with Pressure Pressure -Offloading No No -Treatment Response Procedure Procedure Tolerated Well Tolerated Well Pain Scale: 0-10 Numeric Is Patient Pain Free? Yes Yes Wound debrided: Lateral ankle Type of Debridement: Excisional debridement Anesthesia Used: 5% Lidocaine Gel Depth: Down to and including healthy tissue, in the subcutaneous layer Percentage of wound debrided: 100 Instrument Used: 7mm curette Tissue Removed: Fibrin Severity: Limited To Skin Breakdown Amount of bleeding with debridement: None Bleeding Controlled with: Compression and gauze Patient tolerated procedure well Assessment/Plan Active Problems Peripheral vascular disease of lower extremity with ulceration (Acute) History of DVT of lower extremity (Chronic) Blood clotting factor deficiency disorder (Chronic) Nonhealing nonsurgical wound with fat layer exposed (Acute) Non-pressure chronic ulcer of ankle (Acute) Infected wound (Acute) Assessment: Nonhealing nonpressure nonsurgical wound. Peripheral vascular disease. Clotting disorder. Pain left lower leg Plan: 5# Epi fix to applied Adaptic and Steri-Strips dry dressing. Hydrofera Blue and stasis pads around wound. Patient instructed to leave alone for 1 week. Follow up in 1 week. Finish metronidazole 250 mg 1 p.o. 3 times daily for 10 days. Also called in tramadol 50 mg 1 p.o. every 4 hours as needed #42 with 5 refills
== END 2019-02-05 23:59 ==
LOC: WC 09:45
PROVIDERS: Family Provider Physician Assistant Medical; PCP Physician Assistant Medical; Visit Provider Podiatrist
DX: I73.9 Peripheral vascular disease, unspecified (principal); Z86.718 Personal history of other venous thrombosis and embolism; L97.311 Non-pressure chronic ulcer of right ankle limited to breakdown of skin; D68.2 Hereditary deficiency of other clotting factors; Z79.01 Long term (current) use of anticoagulants
CPT/HCPCS: 15271; 15275; 87070; 87075; 87077; 87186; 87205; Q4186

== ENCOUNTER 2019-03-04 09:00 | Outpatient (RCR) | payer MEDICARE, MEDICAID, SELFPAY ==
[2019-02-06 01:02] VITALS: BP 135/76; PULSE 82; RESP 16; TEMP 36.9
[2019-02-11 10:50] VITALS: BP 132/76; PULSE 66; RESP 18; BMI 25.0
[2019-02-11 11:09] VITALS: BMI 25.0
--- NOTE | 2019-02-11 12:35 | PCM.WC.PN ---
(1) Non-pressure chronic ulcer of ankle Status: Acute Current Visit: Yes Code(s): L97.309 - Non-pressure chronic ulcer of unspecified ankle with unspecified severity (2) Nonhealing nonsurgical wound with fat layer exposed Status: Acute Current Visit: Yes Code(s): T14.8XXA - Other injury of unspecified body region, initial encounter (3) Peripheral vascular disease of lower extremity with ulceration Status: Acute Current Visit: Yes Code(s): I73.9 - Peripheral vascular disease, unspecified; L97.909 - Non-pressure chronic ulcer of unspecified part of unspecified lower leg with unspecified severity (4) 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 Developed in November and open area and her left inner ankle area while in [place]. Patient was not wearing her compression stockings because of the heat. Patient has been seen by her primary care doctor and started on doxycycline on and has been on a Medrol Dosepak for this problem. Patient was referred to us from her doctor. Progress of Wound: Today the ulcer is well demarcated and starting to show some skin in the base. Patient had anaerobes and was started on metronidazole last week the pain that she has been complaining about is improving the depth is better and still making new cells in the base of the wounds. She was intolerant to debridement and no esthesia was needed we will continue with the epi fix - Physical Exam Vital Signs Temp Pulse Resp BP 98.4 F 66 18 132/76 H 02/06/19 01:02 02/11/19 10:50 02/11/19 10:50 02/11/19 10:50 General: Oriented x3, Cooperative, Well developed HEENT: Atraumatic, PERRLA Oral: Moist Mucosa Neck: Supple, No JVD Lungs: Clear to auscultation, Normal air movement Cardiovascular: Regular rate, Regular Rhythm Abdomen: Bowel Sounds Present, Soft, Non Tender, No Hepato-splenomegaly Extremities: No clubbing, No edema Skin: Ulcer/ Wound Wound Measurements and Assessment WC - Nurse 1 - General Ulcer Measurement Start: 02/11/19 10:49 Freq: Status: Active Protocol: Activity Type Activity Date Activity User E-Sign Co-Sign Detail Recorded Client Recorded Date Recorded By Document 02/11/19 10:50 [id number] 02/11/19 11:03 MD Document 02/11/19 11:09 [id number] 02/11/19 11:13 02/11/19 02/11/19 10:50 11:09 Wound Center Nurse 1 [Ulcer Assessment] #1 L Lat Ankle -Combined with other wound No -Current Size (cm) - Length 0.8 -Current Size (cm) - Width 1.1 -Current Size (cm) - Depth 0.1 -Total Square Cm 0.88 -Photo Taken No -Epithelialization Small 1-33% -Tunneling No -Classification - Thickness Partial Thickness -Exudate Amt Small -Exudate Type Serosanguineous -Wound Margin Distinct, Outline Attached -Granulation Amt Small (1-33%) -Granulation Quality [place] -Slough/Fibrin Yes -Necrosis Amt Small (1-33%) -Necrotic Tissue Type Adherent Slough -Texture (Debbi-wound Skin Appearance) No Abnormality, Assessed -Moisture (Debbi-wound Skin Appearance No Abnormality, ) Assessed -Color (Debbi-wound Skin Appearance) No Abnormality, Assessed -Temperature (Debbi-wound Skin No Abnormality Appearance) (Pt Warm) -Tenderness on Palpation (Debbi-wound Yes Skin Appearance) -Ulcer Cleansing Rinsed/ Irrigated with Saline -Foul Odor after Cleansing No -Anesthetic Used 5% Lidocaine Gel [Edema Assessment] -Lower Limb Edema Present No WC - Nurse 2 - General Ulcer CM Notes Start: 02/11/19 10:49 Freq: Status: Active Protocol: Activity Type Activity Date Activity User E-Sign Co-Sign Detail Recorded Client Recorded Date Recorded By Document 02/11/19 11:20 MW [id number] 02/11/19 11:25 MW 02/11/19 11:20 Wound Center Nurse 2 [Procedure/Treatment] #1 L Lat Ankle -Time 11:21 -Correct Patient Yes -Correct Side, Site, Position Yes -Correct Procedure Yes -Procedure Performed Yes -Type of Procedure Debridement -Clinical Debridement Subcutaneous -Post Debridement Size (cm) - Length 0.8 -Post Debridement Size (cm) - Width 1.2 -Post Debridement Size (cm) - Depth 0.3 -Total Square Cm 0.96 -Wound/Ulcer Outcome Not Healed -Ulcer Cleansing Rinsed/ Irrigated with Saline -Foul Odor after Cleansing No -Bioengineered Tissue Yes -Type of bioengineered Tissue EPIFIX -Expiration Date 06/08/23 -Product Lot Number [id number] -Percent Used 100 -Saline Lot Number [id number] -Bleeding Controlled with Pressure -Offloading No -Treatment Response Procedure Tolerated Well [See Physician Procedure note for Specifics] Pain Scale: 0-10 Numeric [Pain] -Is Patient Pain Free? Yes Musculoskeletal: No Tenderness to Palpation of Joints or Extremities Lymphatic: No Cervical, Supraclavicular, or Inguinal Adenopathy Neurological: Cranial nerves II-XII grossly intact, Neuro grossly intact Psych/Mental Status: Normal Affect, Appropriate Debridement Note Post-Debridement Measurements/Treatment WC - Nurse 2 - General Ulcer CM Notes Start: 02/11/19 10:49 Freq: Status: Active Protocol: Activity Type Activity Date Activity User E-Sign Co-Sign Detail Recorded Client Recorded Date Recorded By Document 02/11/19 11:20 MW [id number] 02/11/19 11:25 MW 02/11/19 11:20 Wound Center Nurse 2 #1 L Lat Ankle -Time 11:21 -Correct Patient Yes -Correct Side, Site, Position Yes -Correct Procedure Yes -Procedure Performed Yes -Type of Procedure Debridement -Clinical Debridement Subcutaneous -Post Debridement Size (cm) - Length 0.8 -Post Debridement Size (cm) - Width 1.2 -Post Debridement Size (cm) - Depth 0.3 -Total Square Cm 0.96 -Wound/Ulcer Outcome Not Healed -Ulcer Cleansing Rinsed/ Irrigated with Saline -Foul Odor after Cleansing No -Bioengineered Tissue Yes -Type of bioengineered Tissue EPIFIX -Expiration Date 06/08/23 -Product Lot Number [id number] -Percent Used 100 -Saline Lot Number [id number] -Bleeding Controlled with Pressure -Offloading No -Treatment Response Procedure Tolerated Well Pain Scale: 0-10 Numeric Is Patient Pain Free? Yes Wound debrided: Left lateral ankle ulcer Type of Debridement: Excisional debridement Anesthesia Used: 5% Lidocaine Gel Depth: Down to and including healthy tissue, in the subcutaneous layer Percentage of wound debrided: 100 Instrument Used: - - 1. Curette Tissue Removed: Some slough Severity: Limited To Skin Breakdown Amount of bleeding with debridement: None Bleeding Controlled with: Pressure Patient tolerated procedure well Assessment/Plan Active Problems Peripheral vascular disease of lower extremity with ulceration (Acute) History of DVT of lower extremity (Chronic) Blood clotting factor deficiency disorder (Chronic) Nonhealing nonsurgical wound with fat layer exposed (Acute) Non-pressure chronic ulcer of ankle (Acute) Assessment: Nonhealing nonpressure nonsurgical wound. Peripheral vascular disease. Clotting disorder. Pain left lower leg Plan: 6# Epi fix to applied Adaptic and Steri-Strips dry dressing. Hydrofera Blue and stasis pads around wound. Patient instructed to leave alone for 1 week. Follow up in 1 week. Also called in tramadol 50 mg 1 p.o. every 4 hours as needed #42 with 5 refills
[2019-02-18 10:10] VITALS: BP 127/70; PULSE 76; RESP 18; TEMP 37; BMI 25.0
--- NOTE | 2019-02-18 12:11 | PCM.WC.PN ---
(1) Non-pressure chronic ulcer of ankle Status: Acute Current Visit: Yes Code(s): L97.309 - Non-pressure chronic ulcer of unspecified ankle with unspecified severity (2) Nonhealing nonsurgical wound with fat layer exposed Status: Acute Current Visit: Yes Code(s): T14.8XXA - Other injury of unspecified body region, initial encounter (3) Peripheral vascular disease of lower extremity with ulceration Status: Acute Current Visit: Yes Code(s): I73.9 - Peripheral vascular disease, unspecified; L97.909 - Non-pressure chronic ulcer of unspecified part of unspecified lower leg with unspecified severity (4) 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 Developed in November and open area and her left inner ankle area while in [place]. Patient was not wearing her compression stockings because of the heat. Patient has been seen by her primary care doctor and started on doxycycline on and has been on a Medrol Dosepak for this problem. Patient was referred to us from her doctor. Progress of Wound: Today the ulcer is well demarcated and starting to show some skin in the base. Patient had anaerobes and was started on metronidazole last week the pain that she has been complaining about is improving the depth is better and still making new cells in the base of the wounds. She was intolerant to debridement and no anesthesia was needed we will continue with the epi fix - Physical Exam Vital Signs Temp Pulse Resp BP 98.6 F 76 18 127/70 H 02/18/19 10:10 02/18/19 10:10 02/18/19 10:10 02/18/19 10:10 General: Oriented x3, Cooperative, Well developed HEENT: Atraumatic, PERRLA Oral: Moist Mucosa Neck: Supple, No JVD Lungs: Clear to auscultation, Normal air movement Cardiovascular: Regular rate, Regular Rhythm Abdomen: Bowel Sounds Present, Soft, Non Tender, No Hepato-splenomegaly Extremities: No clubbing, No edema, - - Left lateral ankle Wound Measurements and Assessment WC - Nurse 1 - General Ulcer Measurement Start: 02/11/19 10:49 Freq: Status: Active Protocol: Activity Type Activity Date Activity User E-Sign Co-Sign Detail Recorded Client Recorded Date Recorded By Document 02/18/19 10:10 RB [id number] 02/18/19 10:12 RB 02/18/19 10:10 Wound Center Nurse 1 [Ulcer Assessment] #1 L Lat Ankle -Combined with other wound No -Current Size (cm) - Length 1.5 -Current Size (cm) - Width 1 -Current Size (cm) - Depth 0.1 -Total Square Cm 1.5 -Photo Taken No -Tunneling No -Undermining/Tunneling No -Circular Undermining No -Exudate Amt Small -Exudate Type Serosanguineous -Wound Margin Distinct, Outline Attached -Granulation Amt Medium (34-66%) -Granulation Quality [place] -Slough/Fibrin Yes -Necrosis Amt Small (1-33%) -Necrotic Tissue Type Adherent Slough -Structure Exposed N/A -Texture (Debbi-wound Skin Appearance) Assessed -Moisture (Debbi-wound Skin Appearance Assessed ) -Color (Debbi-wound Skin Appearance) Assessed -Temperature (Debbi-wound Skin No Abnormality Appearance) (Pt Warm) -Tenderness on Palpation (Debbi-wound No Skin Appearance) -Ulcer Cleansing Wound Cleanser -Foul Odor after Cleansing No -Anesthetic Used 5% Lidocaine Gel [Edema Assessment] -Left Calf (cm) 32.5 -Left Ankle (cm) 19.5 WC - Nurse 2 - General Ulcer CM Notes Start: 02/11/19 10:49 Freq: Status: Active Protocol: Activity Type Activity Date Activity User E-Sign Co-Sign Detail Recorded Client Recorded Date Recorded By Document 02/18/19 11:03 MW [id number] 02/18/19 11:07 02/18/19 11:03 Wound Center Nurse 2 [Procedure/Treatment] #1 L Lat Ankle -Time 11:06 -Correct Patient Yes -Correct Side, Site, Position Yes -Correct Procedure Yes -Procedure Performed Yes -Type of Procedure Debridement -Clinical Debridement Subcutaneous -Post Debridement Size (cm) - Length 0.8 -Post Debridement Size (cm) - Width 0.7 -Post Debridement Size (cm) - Depth 0.2 -Total Square Cm 0.56 -Wound/Ulcer Outcome Not Healed -Ulcer Cleansing Rinsed/ Irrigated with Saline -Foul Odor after Cleansing No -Bioengineered Tissue Yes -Type of bioengineered Tissue EPIFIX -Expiration Date 05/08/23 -Product Lot Number [id number] -Percent Used 100 -Saline Lot Number [id number] -Bleeding Controlled with Pressure -Offloading No -Treatment Response Procedure Tolerated Well [See Physician Procedure note for Specifics] Pain Scale: 0-10 Numeric [Pain] -Is Patient Pain Free? Yes Musculoskeletal: No Tenderness to Palpation of Joints or Extremities Lymphatic: No Cervical, Supraclavicular, or Inguinal Adenopathy Neurological: Cranial nerves II-XII grossly intact, Neuro grossly intact Psych/Mental Status: Normal Affect, Appropriate Debridement Note Post-Debridement Measurements/Treatment WC - Nurse 2 - General Ulcer CM Notes Start: 02/11/19 10:49 Freq: Status: Active Protocol: Activity Type Activity Date Activity User E-Sign Co-Sign Detail Recorded Client Recorded Date Recorded By Document 02/11/19 11:20 MW [id number] 02/11/19 11:25 MW Document 02/18/19 11:03 MW [id number] 02/18/19 11:07 MW 02/11/19 02/18/19 11:20 11:03 Wound Center Nurse 2 #1 L Lat Ankle -Time 11:21 11:06 -Correct Patient Yes Yes -Correct Side, Site, Position Yes Yes -Correct Procedure Yes Yes -Procedure Performed Yes Yes -Type of Procedure Debridement Debridement -Clinical Debridement Subcutaneous Subcutaneous -Post Debridement Size (cm) - Length 0.8 0.8 -Post Debridement Size (cm) - Width 1.2 0.7 -Post Debridement Size (cm) - Depth 0.3 0.2 -Total Square Cm 0.96 0.56 -Wound/Ulcer Outcome Not Healed Not Healed -Ulcer Cleansing Rinsed/ Rinsed/ Irrigated with Irrigated with Saline Saline -Foul Odor after Cleansing No No -Bioengineered Tissue Yes Yes -Type of bioengineered Tissue EPIFIX EPIFIX -Expiration Date 06/08/23 05/08/23 -Product Lot Number [id number] -Percent Used 100 100 -Saline Lot Number [id number] -Bleeding Controlled with Pressure Pressure -Offloading No No -Treatment Response Procedure Procedure Tolerated Well Tolerated Well Pain Scale: 0-10 Numeric Is Patient Pain Free? Yes Yes Wound debrided: Left lateral ankle Type of Debridement: Excisional debridement Anesthesia Used: 5% Lidocaine Gel Depth: Down to and including healthy tissue, in the subcutaneous layer Percentage of wound debrided: 100 Instrument Used: 3mm curette Tissue Removed: Fibrin Severity: Limited To Skin Breakdown Bleeding Controlled with: Pressure Patient tolerated procedure well Assessment/Plan Active Problems Peripheral vascular disease of lower extremity with ulceration (Acute) History of DVT of lower extremity (Chronic) Blood clotting factor deficiency disorder (Chronic) Nonhealing nonsurgical wound with fat layer exposed (Acute) Non-pressure chronic ulcer of ankle (Acute) Assessment: Nonhealing nonpressure nonsurgical wound. Peripheral vascular disease. Clotting disorder. Pain left lower leg Plan: 7# Epi fix to applied Adaptic and Steri-Strips dry dressing. Hydrofera Blue and stasis pads around wound. Patient instructed to leave alone for 1 week. Follow up in 1 week. Also called in tramadol 50 mg 1 p.o. every 4 hours as needed #42 with 5 refills
[2019-02-25 09:50] VITALS: BP 131/76; PULSE 87; RESP 18; TEMP 36.9; BMI 25.0
--- NOTE | 2019-02-25 12:34 | PCM.WC.PN ---
(1) Non-pressure chronic ulcer of ankle Status: Acute Current Visit: Yes Qualifiers: Laterality: left Code(s): L97.309 - Non-pressure chronic ulcer of unspecified ankle with unspecified severity (2) Nonhealing nonsurgical wound with fat layer exposed Status: Acute Current Visit: Yes Code(s): T14.8XXA - Other injury of unspecified body region, initial encounter (3) Peripheral vascular disease of lower extremity with ulceration Status: Acute Current Visit: Yes Code(s): I73.9 - Peripheral vascular disease, unspecified; L97.909 - Non-pressure chronic ulcer of unspecified part of unspecified lower leg with unspecified severity (4) 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 Developed in November and open area and her left inner ankle area while in [place]. Patient was not wearing her compression stockings because of the heat. Patient has been seen by her primary care doctor and started on doxycycline on and has been on a Medrol Dosepak for this problem. Patient was referred to us from her doctor. Progress of Wound: Today the ulcer is most filled in. Well demarcated showiing some skin in the base. Patient had anaerobes and was started on metronidazole last week the pain that she has been complaining about is gone. Continue with the epiphix - Physical Exam Vital Signs Temp Pulse Resp BP 98.4 F 87 18 131/76 H 02/25/19 09:50 02/25/19 09:50 02/25/19 09:50 02/25/19 09:50 General: Oriented x3, Cooperative, Well developed HEENT: Atraumatic, PERRLA Oral: Moist Mucosa Neck: Supple, No JVD Lungs: Clear to auscultation, Normal air movement Cardiovascular: Regular rate, Regular Rhythm Abdomen: Bowel Sounds Present, Soft, Non Tender, No Hepato-splenomegaly Extremities: No clubbing, No edema Skin: Ulcer/ Wound - Lateral lower ankle Wound Measurements and Assessment WC - Nurse 1 - General Ulcer Measurement Start: 02/11/19 10:49 Freq: Status: Active Protocol: Activity Type Activity Date Activity User E-Sign Co-Sign Detail Recorded Client Recorded Date Recorded By Document 02/25/19 09:50 RB [id number] 02/25/19 09:55 RB 02/25/19 09:50 Wound Center Nurse 1 [Ulcer Assessment] #1 L Lat Ankle -Combined with other wound No -Current Size (cm) - Length 0.7 -Current Size (cm) - Width 0.8 -Current Size (cm) - Depth 0.1 -Total Square Cm 0.56 -Photo Taken No -Tunneling No -Undermining/Tunneling No -Circular Undermining No -Exudate Amt Small -Exudate Type Serosanguineous -Wound Margin Flat & Intact -Granulation Amt Medium (34-66%) -Granulation Quality Klein -Slough/Fibrin Yes -Necrosis Amt Small (1-33%) -Necrotic Tissue Type Adherent Slough -Structure Exposed N/A -Texture (Debbi-wound Skin Appearance) Assessed, Scarring -Moisture (Debbi-wound Skin Appearance Assessed ) -Color (Debbi-wound Skin Appearance) Hemosiderin Staining -Temperature (Debbi-wound Skin No Abnormality Appearance) (Pt Warm) -Tenderness on Palpation (Debbi-wound No Skin Appearance) -Ulcer Cleansing Wound Cleanser -Foul Odor after Cleansing No -Anesthetic Used 5% Lidocaine Gel [Edema Assessment] -Lower Limb Edema Present Yes -Left Calf (cm) 33.5 -Left Ankle (cm) 19.4 WC - Nurse 2 - General Ulcer CM Notes Start: 02/11/19 10:49 Freq: Status: Active Protocol: Activity Type Activity Date Activity User E-Sign Co-Sign Detail Recorded Client Recorded Date Recorded By Document 02/25/19 10:31 MW [id number] 02/25/19 10:40 MW 02/25/19 10:31 Wound Center Nurse 2 [Procedure/Treatment] #1 L Lat Ankle -Time 10:37 -Correct Patient Yes -Correct Side, Site, Position Yes -Correct Procedure Yes -Procedure Performed Yes -Type of Procedure Debridement -Clinical Debridement Subcutaneous -Post Debridement Size (cm) - Length 0.7 -Post Debridement Size (cm) - Width 1.0 -Post Debridement Size (cm) - Depth 0.2 -Total Square Cm 0.70 -Wound/Ulcer Outcome Not Healed -Ulcer Cleansing Rinsed/ Irrigated with Saline -Foul Odor after Cleansing No -Bioengineered Tissue Yes -Type of bioengineered Tissue EPIFIX -Expiration Date 05/08/23 -Product Lot Number [id number] -Percent Used 100 -Saline Lot Number [id number] -Bleeding Controlled with Pressure -Offloading No -Treatment Response Procedure Tolerated Well [See Physician Procedure note for Specifics] Pain Scale: 0-10 Numeric [Pain] -Is Patient Pain Free? Yes Musculoskeletal: No Tenderness to Palpation of Joints or Extremities Lymphatic: No Cervical, Supraclavicular, or Inguinal Adenopathy Neurological: Cranial nerves II-XII grossly intact, Neuro grossly intact Psych/Mental Status: Normal Affect, Appropriate Debridement Note Post-Debridement Measurements/Treatment WC - Nurse 2 - General Ulcer CM Notes Start: 02/11/19 10:49 Freq: Status: Active Protocol: Activity Type Activity Date Activity User E-Sign Co-Sign Detail Recorded Client Recorded Date Recorded By Document 02/11/19 11:20 MW [id number] 02/11/19 11:25 MW Document 02/18/19 11:03 MW [id number] 02/18/19 11:07 MW Document 02/25/19 10:31 MW [id number] 02/25/19 10:40 MW 02/11/19 02/18/19 02/25/19 11:20 11:03 10:31 Wound Center Nurse 2 #1 L Lat Ankle -Time 11:21 11:06 10:37 -Correct Patient Yes Yes Yes -Correct Side, Site, Position Yes Yes Yes -Correct Procedure Yes Yes Yes -Procedure Performed Yes Yes Yes -Type of Procedure Debridement Debridement Debridement -Clinical Debridement Subcutaneous Subcutaneous Subcutaneous -Post Debridement Size (cm) - Length 0.8 0.8 0.7 -Post Debridement Size (cm) - Width 1.2 0.7 1.0 -Post Debridement Size (cm) - Depth 0.3 0.2 0.2 -Total Square Cm 0.96 0.56 0.70 -Wound/Ulcer Outcome Not Healed Not Healed Not Healed -Ulcer Cleansing Rinsed/ Rinsed/ Rinsed/ Irrigated with Irrigated with Irrigated with Saline Saline Saline -Foul Odor after Cleansing No No No -Bioengineered Tissue Yes Yes Yes -Type of bioengineered Tissue EPIFIX EPIFIX EPIFIX -Expiration Date 06/08/23 05/08/23 05/08/23 -Product Lot Number [id number] -Percent Used 100 100 100 -Saline Lot Number [id number] -Bleeding Controlled with Pressure Pressure Pressure -Offloading No No No -Treatment Response Procedure Procedure Procedure Tolerated Well Tolerated Well Tolerated Well Pain Scale: 0-10 Numeric Is Patient Pain Free? Yes Yes Yes Wound debrided: Left lateral lower ankle Type of Debridement: Excisional debridement Anesthesia Used: 5% Lidocaine Gel Depth: Down to and including healthy tissue, in the subcutaneous layer, to muscle Instrument Used: 3mm curette Tissue Removed: Slough and fibrin Amount of bleeding with debridement: None Assessment/Plan Active Problems Peripheral vascular disease of lower extremity with ulceration (Acute) History of DVT of lower extremity (Chronic) Blood clotting factor deficiency disorder (Chronic) Nonhealing nonsurgical wound with fat layer exposed (Acute) Non-pressure chronic ulcer of ankle (Acute) Assessment: Nonhealing nonpressure nonsurgical wound. Peripheral vascular disease. Clotting disorder. Pain left lower leg Plan: 8# Epi fix to applied Adaptic and Steri-Strips dry dressing. Hydrofera Blue and stasis pads around wound. Patient instructed to leave alone for 1 week. Follow up in 1 week. Also called in tramadol 50 mg 1 p.o. every 4 hours as needed #42 with 5 refills
[2019-03-03 09:13] VITALS: BP 140/71; PULSE 75; RESP 16; TEMP 34.9; BMI 25.0
--- NOTE | 2019-03-03 11:10 | PCM.WC.PN ---
(1) Non-pressure chronic ulcer of ankle Status: Acute Current Visit: Yes Qualifiers: Laterality: left Code(s): L97.309 - Non-pressure chronic ulcer of unspecified ankle with unspecified severity (2) Peripheral vascular disease of lower extremity with ulceration Status: Acute Current Visit: Yes Code(s): I73.9 - Peripheral vascular disease, unspecified; L97.909 - Non-pressure chronic ulcer of unspecified part of unspecified lower leg with unspecified severity Type of Wound Date of Service: 03/03/19 Chief Complaint: Follow-up on left lateral venous ulcer of inner ankle History of Wound: 63-year-old white female with a clotting disorder on Coumadin. Developed in November and open area and her left inner ankle area while in [place]. Patient was not wearing her compression stockings because of the heat. Patient has been seen by her primary care doctor and started on doxycycline on and has been on a Medrol Dosepak for this problem. Patient was referred to us from her doctor. Progress of Wound: No new cocnerns. Improving. - Physical Exam Vital Signs Temp Pulse Resp BP 94.8 F L 75 16 140/71 H 03/03/19 09:13 03/03/19 09:13 03/03/19 09:13 03/03/19 09:13 General: Alert, Oriented x3, Cooperative, No apparent distress HEENT: Atraumatic, Normocephalic Oral: Moist Mucosa Lungs: Normal air movement Extremities: No cyanosis Skin: Ulcer/ Wound Wound Measurements and Assessment WC - Nurse 1 - General Ulcer Measurement Start: 02/11/19 10:49 Freq: Status: Active Protocol: Activity Type Activity Date Activity User E-Sign Co-Sign Detail Recorded Client Recorded Date Recorded By Document 03/03/19 09:13 [id number] 03/03/19 09:20 BS 03/03/19 09:13 Wound Center Nurse 1 [Ulcer Assessment] #1 L Lat Ankle -Combined with other wound No -Current Size (cm) - Length 0.2 -Current Size (cm) - Width 0.7 -Current Size (cm) - Depth 0.1 -Total Square Cm 0.14 -Photo Taken No -Necrosis Amt Small (1-33%) -Necrotic Tissue Type Adherent Slough -Moisture (Debbi-wound Skin Appearance Assessed,Dry/ ) Scaly -Temperature (Debbi-wound Skin No Abnormality Appearance) (Pt Warm) -Tenderness on Palpation (Debbi-wound No Skin Appearance) -Ulcer Cleansing Rinsed/ Irrigated with Saline -Foul Odor after Cleansing No -Anesthetic Used 5% Lidocaine Gel WC - Nurse 2 - General Ulcer CM Notes Start: 02/11/19 10:49 Freq: Status: Active Protocol: Activity Type Activity Date Activity User E-Sign Co-Sign Detail Recorded Client Recorded Date Recorded By Document 03/03/19 09:42 MW [id number] 03/03/19 09:44 MW 03/03/19 09:42 Wound Center Nurse 2 [Procedure/Treatment] -Time 09:43 -Correct Patient Yes -Correct Side, Site, Position Yes -Correct Procedure Yes -Procedure Performed Yes -Type of Procedure Debridement -Clinical Debridement Subcutaneous -Post Debridement Size (cm) - Length 0.6 -Post Debridement Size (cm) - Width 0.7 -Post Debridement Size (cm) - Depth 0.1 -Total Square Cm 0.42 -Wound/Ulcer Outcome Not Healed -Ulcer Cleansing Rinsed/ Irrigated with Saline -Foul Odor after Cleansing No -Bioengineered Tissue Yes -Type of bioengineered Tissue EPIFIX -Expiration Date 06/08/23 -Product Lot Number [id number] -Percent Used 100 -Saline Lot Number [id number] -Bleeding Controlled with Pressure -Offloading No -Treatment Response Procedure Tolerated Well [See Physician Procedure note for Specifics] Pain Scale: 0-10 Numeric [Pain] -Is Patient Pain Free? Yes Musculoskeletal: No Muscle Wasting Neurological: Cranial nerves II-XII grossly intact Psych/Mental Status: Normal Affect Debridement Note Post-Debridement Measurements/Treatment WC - Nurse 2 - General Ulcer CM Notes Start: 02/11/19 10:49 Freq: Status: Active Protocol: Activity Type Activity Date Activity User E-Sign Co-Sign Detail Recorded Client Recorded Date Recorded By Document 02/11/19 11:20 MW [id number] 02/11/19 11:25 MW Document 02/18/19 11:03 MW [id number] 02/18/19 11:07 MW Document 02/25/19 10:31 MW [id number] 02/25/19 10:40 MW Document 03/03/19 09:42 MW [id number] 03/03/19 09:44 MW 09/11/2402/18/19 02/25/19 11:20 11:03 10:31 Wound Center Nurse 2 #1 L Lat Ankle -Time 11:21 11:06 10:37 -Correct Patient Yes Yes Yes -Correct Side, Site, Position Yes Yes Yes -Correct Procedure Yes Yes Yes -Procedure Performed Yes Yes Yes -Type of Procedure Debridement Debridement Debridement -Clinical Debridement Subcutaneous Subcutaneous Subcutaneous -Post Debridement Size (cm) - Length 0.8 0.8 0.7 -Post Debridement Size (cm) - Width 1.2 0.7 1.0 -Post Debridement Size (cm) - Depth 0.3 0.2 0.2 -Total Square Cm 0.96 0.56 0.70 -Wound/Ulcer Outcome Not Healed Not Healed Not Healed -Ulcer Cleansing Rinsed/ Rinsed/ Rinsed/ Irrigated with Irrigated with Irrigated with Saline Saline Saline -Foul Odor after Cleansing No No No -Bioengineered Tissue Yes Yes Yes -Type of bioengineered Tissue EPIFIX EPIFIX EPIFIX -Expiration Date 06/08/23 05/08/23 05/08/23 -Product Lot Number [id number] -Percent Used 100 100 100 -Saline Lot Number [id number] -Bleeding Controlled with Pressure Pressure Pressure -Offloading No No No -Treatment Response Procedure Procedure Procedure Tolerated Well Tolerated Well Tolerated Well Pain Scale: 0-10 Numeric Is Patient Pain Free? Yes Yes Yes 03/03/19 09:42 Wound Center Nurse 2 #1 L Lat Ankle -Time 09:43 -Correct Patient Yes -Correct Side, Site, Position Yes -Correct Procedure Yes -Procedure Performed Yes -Type of Procedure Debridement -Clinical Debridement Subcutaneous -Post Debridement Size (cm) - Length 0.6 -Post Debridement Size (cm) - Width 0.7 -Post Debridement Size (cm) - Depth 0.1 -Total Square Cm 0.42 -Wound/Ulcer Outcome Not Healed -Ulcer Cleansing Rinsed/ Irrigated with Saline -Foul Odor after Cleansing No -Bioengineered Tissue Yes -Type of bioengineered Tissue EPIFIX -Expiration Date 06/08/23 -Product Lot Number [id number] -Percent Used 100 -Saline Lot Number [id number] -Bleeding Controlled with Pressure -Offloading No -Treatment Response Procedure Tolerated Well Pain Scale: 0-10 Numeric Is Patient Pain Free? Yes Wound debrided: Left Leg ( Ankle ) Type of Debridement: Excisional debridement Anesthesia Used: 5% Lidocaine Gel Depth: Down to and including healthy tissue, in the subcutaneous layer Percentage of wound debrided: 100 Instrument Used: 3mm curette Tissue Removed: Slough and devitalized tissue Severity: Fat Layer Exposed Amount of bleeding with debridement: Mild Bleeding Controlled with: Pressure Patient tolerated procedure well Assessment/Plan Active Problems Peripheral vascular disease of lower extremity with ulceration (Acute) History of DVT of lower extremity (Chronic) Blood clotting factor deficiency disorder (Chronic) Nonhealing nonsurgical wound with fat layer exposed (Acute) Non-pressure chronic ulcer of ankle (Acute) Assessment: Nonhealing nonpressure nonsurgical wound. Peripheral vascular disease. Clotting disorder. Pain left lower leg Plan: Debridement done as documented above, procedure was well tolerated. 9th application of Epifix done using 100% of product. Moistened with saline and adaptic touch over top. Hydroferablue over top. Leave in place for 1 week. Continue compression and increased protein intake. Her questions were answered and she was advised to call with any questions or concerns. Follow up next thursday.
--- NOTE | 2019-03-04 08:37 | VDLE_ITS ---
Reason For Study: Bilateral edema lower extremity RIGHT LEFT CFV is compressible, spontaneous, phasic, CFV is compressible, spontaneous, phasic, competent and demonstrates normal competent, and demonstrates normal augmentation. augmentation. FV is compressible, spontaneous, phasic, FV is compressible, spontaneous, phasic, competent and demonstrates normal competent and demonstrates normal augmentation. augmentation. POP V is compressible, spontaneous, phasic, POP V is compressible, spontaneous, phasic, competent and demonstrates normal competent and demonstrates normal augmentation. augmentation. T/P Trunk is compressible. T/P Trunk is compressible. PTV is compressible. PTV is compressible. RT PerV is compressible. LT PerV is compressible. SFJ is competent and measures 0.56 x 0.60 cm. SFJ is competent and measures 0.80 x 0.75 cm. GSV proximal thigh measures 0.32 x 0.34 cm. GSV proximal thigh measures 0.48 x 0.50 cm. GSV at knee measures 0.26 x 0.29 cm. GSV at knee measures 0.43 x 0.43 cm. GSV is competent throughout. GSV is competent throughout. SSV at junction is competent and measures SSV at junction is competent and measures 0.11 x 0.14 cm. 0.27 x 0.28 cm. Procedure Exam performed in department. A preliminary report was called and/or faxed to . Interpretation Summary Deep veins of the lower extremities are bilaterally patent and compressible segmentally. There is no evidence of deep vein thrombosis on either side. Valvular competence appears intact within the proximal deep venous systems bilaterally. The great saphenous veins appear bilaterally patent and compressible segmentally. Sapheno-femoral junctions are bilaterally competent . Valvular competence appears to be intact segmentally within the great saphenous veins bilaterally. Small saphenous veins are patent and competent bilaterally. Ordering Physician: Louisa Espinoza Referring Physician: Inocencia Rowell Performed By: Lyla Mg RVT
--- NOTE | 2019-03-04 08:38 | ART_ITS ---
Reason For Study: PAD Procedure A bilateral lower extremity continuous wave Doppler with analog waveform analysis,segmental pressures,and ankle brachial indexes without exercise. Left Segmental Pressures Left brachial= 143mmHg. Left posterior tibial artery = 167mmHg. Left dorsalis pedis artery = 166mmHg. Left digit = 127 mmHg. The left dorsalis pedis waveforms are biphasic. The left posterior tibial artery waveforms are triphasic. Right Segmental Pressures Right brachial= 146mmHg. Right posterior tibial artery = 174mmHg. Right dorsalis pedis artery = 160mmHg. Right digit = 913 mmHg. The right dorsalis pedis waveforms are triphasic. The right posterior tibial artery waveforms are triphasic. Indices The right ankle brachial index by the dorsalis pedis is 1.10. The right ankle brachial index by the posterior tibial artery is 1.19. The right digital-brachial index is 0.62. The left ankle brachial index by the dorsalis pedis is 1.14. The left ankle brachial index by the posterior tibial artery is 1.14. The left digital-brachial index is 0.87. Interpretation Summary Triphasic Doppler waveforms are noted at ankle level on the right. Triphasic and biphasic Doppler waveforms are noted at ankle level on the left. Pulse-volume recording waveform amplitudes are satisfactory at all levels bilaterally, but for the right digital level, which is diminished. Resting ankle-brachial indices are normal bilaterally. The right digital-brachial index is mildly diminished. The left digital-brachial index is normal. Arterial flow appears to be normal at ankle level bilaterally, and at digital level on the left. There is evidence of mild, distal, small-vessel arterial occlusive disease at digital level on the right. Ordering Physician: Louisa Espinoza Referring Physician: Inocencia Rowell Performed By: Lyla Mg RVT
== END 2019-03-07 23:59 ==
LOC: CVS 09:00
PROVIDERS: Family Provider Physician Assistant Medical; PCP Physician Assistant Medical; Referring Provider Podiatrist; Visit Provider Podiatrist
DX: I73.9 Peripheral vascular disease, unspecified (principal); L97.321 Non-pressure chronic ulcer of left ankle limited to breakdown of skin; D68.4 Acquired coagulation factor deficiency; Z86.718 Personal history of other venous thrombosis and embolism; Z79.01 Long term (current) use of anticoagulants; R60.0 Localized edema
CPT/HCPCS: 15271; 93923; 93970; Q4186

== ENCOUNTER 2019-03-11 04:37 | Outpatient (RCR) | payer MEDICARE, MEDICAID, SELFPAY ==
[2019-03-03 09:13] VITALS: BMI 25.0
[2019-03-11 09:29] VITALS: BP 141/78; PULSE 77; RESP 16; BMI 25.0
--- NOTE | 2019-03-11 10:56 | PN.PCM_ITS ---
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 Developed in November and open area and her left inner ankle area while in [place]. Patient was not wearing her compression stockings because of the heat. Patient has been seen by her primary care doctor and started on doxycycline on and has been on a Medrol Dosepak for this problem. Patient was referred to us from her doctor. Progress of Wound: Today the wound is healed patient will be discharged from the wound center. We did go over her arterial brachial studies of her lower extremities both were competent and there was no incompetency shown in any of her veins. Arterial studies were perfect and she had good wave form all the way down to her toes. - Physical Exam Vital Signs Pulse Resp BP 77 16 141/78 H 03/11/19 09:29 03/11/19 09:29 03/11/19 09:29 General: Oriented x3, Cooperative, Well developed HEENT: Atraumatic, PERRLA Oral: Moist Mucosa Neck: Supple, No JVD Lungs: Clear to auscultation, Normal air movement Cardiovascular: Regular rate, Regular Rhythm Abdomen: Bowel Sounds Present, Soft, Non Tender, No Hepato-splenomegaly Extremities: No clubbing, No edema, - - Left lateral ankle ulcer healed Wound Measurements and Assessment WC - Nurse 1 - General Ulcer Measurement Start: 03/11/19 09:29 Freq: Status: Active Protocol: Activity Type Activity Date Activity User E-Sign Co-Sign Detail Recorded Client Recorded Date Recorded By Document 03/11/19 09:29 [facility] [id number] 03/11/19 09:38 BMF 03/11/19 09:29 Wound Center Nurse 1 [Ulcer Assessment] #1 L Lat Ankle -Combined with other wound No -Current Size (cm) - Length 0.6 -Current Size (cm) - Width 0.9 -Current Size (cm) - Depth 0.1 -Total Square Cm 0.54 -Photo Taken No -Epithelialization None Present -Tunneling No -Undermining/Tunneling No -Circular Undermining No -Exudate Amt None Present -Wound Margin Distinct, Outline Attached -Granulation Amt None Present (0 %) -Slough/Fibrin Yes -Necrosis Amt Small (1-33%) -Necrotic Tissue Type Adherent Slough -Texture (Debbi-wound Skin Appearance) Assessed, Scarring -Moisture (Debbi-wound Skin Appearance Assessed,Dry/ ) Scaly -Color (Debbi-wound Skin Appearance) Assessed -Temperature (Debbi-wound Skin No Abnormality Appearance) (Pt Warm) -Tenderness on Palpation (Debbi-wound No Skin Appearance) -Ulcer Cleansing SOAP AND WATER -Foul Odor after Cleansing No -Anesthetic Used 5% Lidocaine Gel [Edema Assessment] -Lower Limb Edema Present Yes -Left Calf (cm) 31.9 -Left Ankle (cm) 18.7 WC - Nurse 2 - General Ulcer CM Notes Start: 03/11/19 09:29 Freq: Status: Active Protocol: Activity Type Activity Date Activity User E-Sign Co-Sign Detail Recorded Client Recorded Date Recorded By Document 03/11/19 09:54 MW [id number] 03/11/19 09:55 MW 03/11/19 09:54 Wound Center Nurse 2 [Procedure/Treatment] #[address] [facility] Ankle -Time 09:54 -Correct Patient Yes -Correct Side, Site, Position Yes -Correct Procedure Yes -Procedure Performed No -Post Debridement Size (cm) - Length 0 -Post Debridement Size (cm) - Width 0 -Post Debridement Size (cm) - Depth 0 -Total Square Cm 0 -Wound/Ulcer Outcome Healed- Epithelialized [See Physician Procedure note for Specifics] Pain Scale: 0-10 Numeric [Pain] -Is Patient Pain Free? Yes Musculoskeletal: No Tenderness to Palpation of Joints or Extremities Lymphatic: No Cervical, Supraclavicular, or Inguinal Adenopathy Neurological: Cranial nerves II-XII grossly intact, Neuro grossly intact Psych/Mental Status: Normal Affect, Appropriate Debridement Note Post-Debridement Measurements/Treatment WC - Nurse 2 - General Ulcer CM Notes Start: 03/11/19 09:29 Freq: Status: Active Protocol: Activity Type Activity Date Activity User E-Sign Co-Sign Detail Recorded Client Recorded Date Recorded By Document 03/11/19 09:54 MW [id number] 03/11/19 09:55 MW 03/11/19 09:54 Wound Center Nurse 2 #1 L Lat Ankle -Time 09:54 -Correct Patient Yes -Correct Side, Site, Position Yes -Correct Procedure Yes -Procedure Performed No -Post Debridement Size (cm) - Length 0 -Post Debridement Size (cm) - Width 0 -Post Debridement Size (cm) - Depth 0 -Total Square Cm 0 -Wound/Ulcer Outcome Healed- Epithelialized Pain Scale: 0-10 Numeric Is Patient Pain Free? Yes No debridement was completed today Assessment/Plan Active Problems Peripheral vascular disease of lower extremity with ulceration (Acute) History of DVT of lower extremity (Chronic) Blood clotting factor deficiency disorder (Chronic) Non-pressure chronic ulcer of ankle (Acute) Assessment: Nonhealing nonpressure nonsurgical wound resolved. Peripheral vascular disease. Clotting disorder. Pain left lower leg Plan: Patient is continue wearing her compression stockings. Protect the new skin for 1 week with a dry dressing. Follow-up as needed. Discharged from the wound center
== END 2019-04-07 23:59 ==
LOC: WC 04:37
PROVIDERS: Family Provider Physician Assistant Medical; PCP Physician Assistant Medical; Visit Provider Nurse Practitioner
DX: Z09 Encounter for follow-up examination after completed treatment for conditions other than malignant neoplasm (principal); Z86.14 Personal history of Methicillin resistant Staphylococcus aureus infection; I73.9 Peripheral vascular disease, unspecified; D68.9 Coagulation defect, unspecified
CPT/HCPCS: 99213; G0463